=== PATIENT | male | born 1940 | race Caucasian/White ===

== ENCOUNTER 2017-01-13 17:10 | Emergency (ER) | payer OTHER ==
[2017-01-13 17:16] VITALS: BP 133/69; BMI 27.3
--- NOTE | 2017-01-13 18:16 | DR.GENAD ---
HPI - PCP Primary Care Physician: STERLING - Complaint/Symptoms Chief Complaint:: RIGHT LEG WEAKNESS AND PAIN THAT BEGAN ONE DAY THIS WEEK, UNSURE OF EXACT DAY. FRIEND THAT BROUGHT PT. TO THE ER SAYS PT. HAS HAD SLURRED SPEECH. - Source History Provided: Patient - Mode of Arrival Mode of Arrival: Wheelchair - Timing Onset of Chief Complaint: 01/09/17 PMH - PMH Past Medical History: Yes Past Medical History: Anxiety, Arthritis, Coronary Artery Disease, Depression, Diabetes, Dialysis, Dyslipidemia, GERD, Hypertension, Renal Disease Past Surgical History: Yes Surgical History: Angioplasty/Stents, Cholecystectomy, Ortho Surgery, Spleenectomy, Other - Family History History of Family Medical Conditions: Yes Family Medical History: Diabetes Mellitus - Social History Does patient currently use any type of tobacco product: No Have you used tobacco products in the last 12 months: No Type of Tobacco Use: None Does any household member use tobacco: No Alcohol Use: None Do you use any recreational Drugs:: No Lives With: Sitter Lives Where: Home - infectious screening In the last 2 months have you had wt loss of >10#?: NO Have you had fever, night sweats or hemotysis?: No Have you traveled outside the country in the last 6 months?: No Isolation: Standard PE - Vital Signs Vitals: Temperature 98.1 F Pulse Rate 106 Respiratory Rate 18 Blood Pressure [Right Arm] 174/74 Blood Pressure [Left Arm] 130/65 Blood Pressure 133/69 O2 Sat by Pulse Oximetry 96 ROR - XRAY XRAY Interpreted by: Radiologist (Right Femur: No acute cortical disruption or dislocation can be identified. The femoral head and neck are unremarkable in their appearance. No significant soft tissue swelling or injury can be seen. There is a metallic prosthesis in the right knee which appears in good position. The bones are osteopenic. The joint spaces are intact. Impression. Status post total right knee replacement and fiffuse osteopenia with no acute bony abnormality seen.) - Diagnosis Discharge Problem: Osteopenia determined by x-ray - Discharge Plan Condition: Stable - Follow ups/Referrals Follow ups/Referrals: Kelvin Singh [Primary Care Provider] - 3 days - Instructions
--- NOTE | 2017-01-13 19:11 | RAD ---
HISTORY: Pain Study: Right femur series Comparison: None Findings: No acute cortical disruption or dislocation can be identified. The femoral head and neck are unrema rkable in their appearance. No significant soft tissue swelling or injury can be seen. There is a m etallic prosthesis in the right knee which appears in good position. The bones are osteopenic. The j oint spaces are intact. IMPRESSION: Status post total right knee replacement and diffuse osteopenia with no acute bony abnormality seen. Reported By:
== END 2017-01-13 19:55 | disposition home or self-care (01) ==
LOC: ER 17:10
DX: M89.9 Disorder of bone, unspecified (principal)
CPT/HCPCS: 73552; 99282

== ENCOUNTER → 2017-01-20 | Outpatient (CLI) | payer OTHER ==
[2017-01-13 17:16] VITALS: BP 133/69
--- NOTE | 2017-01-20 14:00 | CT ---
HISTORY: TIA Study: CT head without contrast Comparison: June 29, 2016 Technique: Axial non contrast images with coronal and sagittal reformats. Dose reduction procedures were use with MA/kv adjusted for body size. Findings: The ventricles, cortical sulci, and other CSF spaces are enlarged consistent with generalized atroph y. There is decreased attenuation in the periventricular white matter suggestive of small vessel vas cular disease. There is a focus of decreased attenuation in the right thalamus which is new when com pared with the prior examination however it does have the appearance of a remote infarct. There is a n old lacunar infarct in the right caudate head. There is an old lacunar infarct in the left cerebel lar hemisphere. There is no evidence for hemorrhage, mass lesion, or extra-axial fluid collection. T hose sinuses visualized were clear. IMPRESSION: No definite acute intracranial abnormality. Atrophy Small-vessel disease Multiple old lacunar infarcts as described Reported By:
--- NOTE | 2017-01-20 15:10 | VAS ---
HISTORY: TIA. Study: Carotid ultrasound. Comparison: None available. Technique: Multiple shaw scale and color flow Doppler images of the right and left carotid arterial system were obtained. The vertebral arterial system was evaluated as well. Findings: Normal color flow Doppler is seen throughout the right and left carotid arterial system. No signifi cant plaque burden. No hemodynamically significant stenosis is seen based on velocity criteria. The right and left vertebral arteries demonstrate antegrade flow. IMPRESSION: 1. No hemodynamically significant stenosis. Reported By:
== END ==
LOC: RAD 13:23
PROVIDERS: ATTEND Internal Medicine Nephrology
DX: G45.8 Other transient cerebral ischemic attacks and related syndromes (principal)
CPT/HCPCS: 70450; 93880

== ENCOUNTER 2017-07-11 08:27 | Emergency (ER) | payer OTHER ==
[2017-07-11 08:44] VITALS: BMI 33.2
[2017-07-11] MEDS ORDERED: NITROSTAT SL PRN (08:45)
[2017-07-11] MEDS ORDERED: NITROSTAT SL ONE (08:49)
--- NOTE | 2017-07-11 08:52 | DR.CP ---
HPI - Time Seen Time seen: 08:40 - PCP Primary Care Physician: dilcia - Complaint Chief Complaint Doctor Comments: Patient states that he has had chest pain for three days recently, started on last week while in [place]. He states that the pain is 7/10 earlier today relieved with nitroglycerin. Denies radiation or diarphoresis. He states that he has had numerous stents, last on several years ago and is scheduled to have stents in [place] by Dr Willard in two days 07/13/17. Patient has had renal disease for ten years and goes to dialysis . Chief Complaint:: patient stated he has been having chest pain for about a week. is scheduled for a heart cath in 2 days in [facility] with dr mansfield. - Source History Provided: Patient - Mode of Arrival Mode of Arrival: Ambulatory - Timing Onset of Chief Complaint: 07/04/17 PMH - PMH Past Medical History: Yes Past Medical History: Anxiety, Arthritis, Coronary Artery Disease, Depression, Diabetes, Dialysis, Dyslipidemia, GERD, Hypertension, Renal Disease Past Surgical History: Yes Surgical History: Angioplasty/Stents, Cholecystectomy, Ortho Surgery, Spleenectomy, Other - Family History History of Family Medical Conditions: Yes Family Medical History: Diabetes Mellitus - Social History Does patient currently use any type of tobacco product: No Have you used tobacco products in the last 12 months: No Type of Tobacco Use: None Does any household member use tobacco: No Alcohol Use: None Do you use any recreational Drugs:: No Lives With: Family Lives Where: Home - infectious screening In the last 2 months have you had wt loss of >10#?: NO Have you had fever, night sweats or hemotysis?: No Have you traveled outside the country in the last 6 months?: No Isolation: Standard ROS - Review of Systems Eyes: No Symptoms Reported ENTM: No Symptoms Reported Respiratoy: No Symptoms Reported Cardiovascular: See HPI, Chest Pain Gastrointestinal/Abdominal: No Symptoms Reported Genitourinary: No Symptoms Reported Neurological: No Symptoms Reported Musculoskeletal: No Symptoms Reported Integumentary: No Symptoms Reported Hematologic/Lymphatic: No Symptoms Reported Endocrine: No Symptoms Reported Psychiatric: No Symptoms Reported All Other Systems: Reviewed and Negative PE - Vitals Vitals: Temperature 98.7 F Pulse Rate [Right Brachial] 79 Pulse Rate 76 Respiratory Rate 16 Blood Pressure [Right Arm] 122/61 Blood Pressure [Left Arm] 130/65 Blood Pressure 165/72 O2 Sat by Pulse Oximetry 99 - General Limitations: No Limitations General Appearance: Alert, In No Apparent Distress - Head Head Exam: Normal Inspection, Atraumatic - Eyes Eye exam: Normal Appearance, PERRL, EOMI - ENT ENT Exam: Normal Exam, Normal Oropharynx - Chest Chest Inspection: Normal Inspection, Symmetric Chest Wall Rise - Respiratory Respiratory Exam: Normal Lung Sounds Bilat Respiratory Exam: Bilateral Clear to Auscultation - Cardiovascular Cardiovascular Exam: Regular Rate, Normal Rhythm, Normal Heart Sounds Pulse: Normal, Radial Edema: Normal - Abdominal Exam Abdominal Exam: Normal Inspection, Normal Bowel Sounds Abdominal Tenderness: negative: RUQ, RLQ, LUQ, LLQ, Epigastrium, Suprapubic, Diffuse, Mild, Moderate, Severe, Other - Extremities Extremities Exam: Normal Inspection, Full ROM - Back Back Exam: Normal Inspection - Neurologic Neurological Exam: Alert, Oriented X3, CN II-XII Intact - Psychiatric Psychiatric Exam: Normal Affect - Skin Skin Exam: Warm, Dry, Intact MDM - Additional Information Additional Information Obtained From: Old Records Course - Treatment Treatment: Discussed with patient results of cardiac work up, recommended 24 hour observation; patient declined, states that he has an appointment for dialysis in the AM. He declined observation - Reevaluation 1st: Improved - Education/Counseling Educated On: Treatment, Diagnosis, Needs for Follow Up ROR - Labs Reviewed Laboratory Results Reviewed?: Yes (potassium elevated) Result Diagrams: 07/11/17 08:50 07/11/17 08:50 Laboratory: WBC 9.3 X10^3/uL (3.6-10.0) 07/11/17 08:50 RBC 2.68 X10^6/uL (4.7-6.0) L 07/11/17 08:50 Hgb 9.5 g/dL (13.5-18.0) L 07/11/17 08:50 Hct 27.3 % (42.0-54.0) L 07/11/17 08:50 MCV 101.7 fL (80.0-100.0) H 07/11/17 08:50 MCH 35.6 pg (27.0-34.0) H 07/11/17 08:50 MCHC 35.0 g/dL (33.0-35.0) 07/11/17 08:50 RDW 13.6 % (11.6-16.5) 07/11/17 08:50 Plt Count 239 X10^3/uL (150.0-450.0) 07/11/17 08:50 MPV 8.3 fL (7.4-11.0) 07/11/17 08:50 Neut % 68.3 % (42.0-75.0) 07/11/17 08:50 Lymph % 17.7 % (21.0-51.0) L 07/11/17 08:50 [place] % 12.5 % (0.0-13.0) 07/11/17 08:50 Eos % 1.0 % (0.9-2.9) 07/11/17 08:50 Baso % 0.5 % (0.2-1.0) 07/11/17 08:50 Neut # 6.3 x10^3/uL (2.2-4.8) H 07/11/17 08:50 Lymph # 1.6 X10^3/uL (1.3-2.9) 07/11/17 08:50 [place] # 1.2 x10^3/uL (0.3-0.8) H 07/11/17 08:50 Eos # 0.1 x10^3/uL (0.0-0.2) 07/11/17 08:50 Baso # 0.0 X10^3/uL (0.0-0.1) 07/11/17 08:50 Absolute Nucleated RBC 0.0 /100WBC 07/11/17 08:50 INR Target Range - 07/11/17 08:50 INR 1.00 (0.8-1.3) 07/11/17 08:50 PTT 28.6 SECONDS (22.9-36.5) 07/11/17 08:50 PTT Comment - 07/11/17 08:50 Sodium 135 mmol/L (136-145) L 07/11/17 08:50 Corrected Sodium 136 mmol/L (136-145) 07/11/17 08:50 Potassium 5.2 mmol/L (3.5-5.1) H 07/11/17 08:50 Chloride 98 mmol/L (98-107) 07/11/17 08:50 Carbon Dioxide 27.6 mmol/L (21-32) 07/11/17 08:50 BUN 33 mg/dL (7-18) H 07/11/17 08:50 Creatinine 6.14 mg/dL (0.70-1.30) H 07/11/17 08:50 Est GFR (MDRD) Af Amer 11 (>60) L 07/11/17 08:50 Est GFR (MDRD) Non-Af 9 (>60) L 07/11/17 08:50 Glucose 134 mg/dL (65-99) H 07/11/17 08:50 Calcium 8.1 mg/dL (8.5-10.1) L 07/11/17 08:50 Corrected Calcium 8.7 mg/dL (8.5-10.1) 07/11/17 08:50 Magnesium 1.8 mg/dL (1.7-2.9) 07/11/17 08:50 Total Bilirubin 0.30 mg/dL (0.2-1.0) 07/11/17 08:50 AST 13 Units/L (15-37) L 07/11/17 08:50 ALT < 6 Units/L (12-78) L 07/11/17 08:50 Alkaline Phosphatase 54 Units/L (46-116) 07/11/17 08:50 Creatine Kinase 62 Units/L (39-308) 07/11/17 08:50 CK-MB (CK-2) < 1.0 ng/mL (0-4.0) 07/11/17 08:50 CK/CKMB % Calc 1.6 % (<4) 07/11/17 08:50 Troponin I < 0.02 ng/mL (0-1.5) 07/11/17 08:50 Total Protein 7.2 g/dL (6.4-8.2) 07/11/17 08:50 Albumin 3.2 g/dL (3.4-5.0) L 07/11/17 08:50 Globulin 4.0 g/dL (2.5-4.5) 07/11/17 08:50 Albumin/Globulin Ratio 0.8 Ratio (1.1-2.1) L 07/11/17 08:50 - XRAY XRAY Interpreted by: Radiologist (Chest: The lungs are clear with minimal scarring in the oleft lung base. Mild cardiomegaly is present. No acute bony abnormalities are identified. Impression: Mild cardiomegaly without evidence of failure. No radiographic evidence of acute cardiopulmonary disease or significant change is noted when compared to the prior examination of 06/29/16) - Diagnosis Discharge Problem: Chest pain Qualifiers: Chest pain type: unspecified Qualified Code(s): R07.9 - Chest pain, unspecified - Discharge Plan Condition: Stable - Follow ups/Referrals Follow ups/Referrals: Kelvin Singh [Primary Care Provider] - 3 days - Instructions
[2017-07-11 08:57] LABS: BASOPHILS % (AUTO) 0.5 % (0.2-1.0); EOSINOPHILS # (AUTO) 0.1 x10^3/uL (0.0-0.2); HEMATOCRIT 27.3 % (42.0-54.0); HEMOGLOBIN 9.5 g/dL (13.5-18.0); LYMPHOCYTES # (AUTO) 1.6 X10^3/uL (1.3-2.9); LYMPHOCYTES % (AUTO) 17.7 % (21.0-51.0); MEAN CORPUSCULAR HEMOGLOBIN 35.6 pg (27.0-34.0); MEAN CORPUSCULAR VOLUME 101.7 fL (80.0-100.0); MEAN PLATELET VOLUME 8.3 fL (7.4-11.0); MONOCYTES # (AUTO) 1.2 x10^3/uL (0.3-0.8); MONOCYTES % (AUTO) 12.5 % (0.0-13.0); NEUTROPHILS # (AUTO) 6.3 x10^3/uL (2.2-4.8); NEUTROPHILS % (AUTO) 68.3 % (42.0-75.0); PLATELET COUNT 239 X10^3/uL (150.0-450.0); RED BLOOD COUNT 2.68 X10^6/uL (4.7-6.0); RED CELL DISTRIBUTION WIDTH 13.6 % (11.6-16.5); WHITE BLOOD COUNT 9.3 X10^3/uL (3.6-10.0)
[2017-07-11 09:02] VITALS: BP 122/61
[2017-07-11 09:14] LABS: BLOOD UREA NITROGEN 33 mg/dL (7-18); CALCIUM 8.1 mg/dL (8.5-10.1); CARBON DIOXIDE 27.6 mmol/L (21-32); CHLORIDE 98 mmol/L (98-107); COR NA(FOR HYPERGLY) 136 mmol/L (136-145); CREATININE 6.14 mg/dL (0.70-1.30); SODIUM 135 mmol/L (136-145); TROPONIN I < 0.02 ng/mL (0-1.5); eGFR BLACK RACES 11 (>60); eGFR NON BLACK RACES 9 (>60)
[2017-07-11 09:18] LABS: ALBUMIN 3.2 g/dL (3.4-5.0); ALKALINE PHOSPHATASE 54 Units/L (46-116); ASPARTATE AMINO TRANSFERASE 13 Units/L (15-37); CKMB % 1.6 % (<4); COR CA(FOR HYPOALB) 8.7 mg/dL (8.5-10.1); CREATINE KINASE 62 Units/L (39-308); CREATINE KINASE MB < 1.0 ng/mL (0-4.0); MAGNESIUM 1.8 mg/dL (1.7-2.9); TOTAL PROTEIN 7.2 g/dL (6.4-8.2)
--- NOTE | 2017-07-11 09:25 | RAD ---
HISTORY: Chest pain. History of renal cell carcinoma and bladder cancer. Study: AP portable chest Comparison: 06/29/2016 Findings: The lungs are clear with minimal scarring in the left lung base. Mild cardiomegaly is present. No a cute bony abnormalities are identified. Surgical clips are present in the left axilla. IMPRESSION: 1. Mild cardiomegaly without evidence of failure. 2. No radiographic evidence of acute cardiopulmonary disease or significant change is noted when com pared to the prior examination. Reported By:
[2017-07-11] MEDS ORDERED: PROVENTIL NEB TX 0.083% 2.5MG/ 3ML NEB SCH (09:45)
[2017-07-11] MEDS ORDERED: PROVENTIL NEB TX 0.083% 2.5MG/ 3ML ONE (09:50)
[2017-07-11 09:55] LABS: ALANINE AMINOTRANSFERASE < 6 Units/L (12-78)
== END 2017-07-11 10:56 | disposition home or self-care (01) ==
LOC: ER 08:35
DX: R07.89 Other chest pain (principal); I51.7 Cardiomegaly
CPT/HCPCS: 36415; 71010; 80053; 82550; 82553; 83735; 84484; 85025; 85610; 85730; 94640; 96365; 99283; 99285; A4222; J7613

== ENCOUNTER 2017-08-09 00:34 | Emergency (ER) | payer OTHER ==
[2017-08-09 00:46] VITALS: BP 174/86; BMI 27.3
[2017-08-09 01:22] LABS: BASOPHILS # (AUTO) 0.1 X10^3/uL (0.0-0.1); EOSINOPHILS # (AUTO) 0.1 x10^3/uL (0.0-0.2); EOSINOPHILS % (AUTO) 1.3 % (0.9-2.9); HEMOGLOBIN 10.5 g/dL (13.5-18.0); LYMPHOCYTES # (AUTO) 1.1 X10^3/uL (1.3-2.9); LYMPHOCYTES % (AUTO) 15.3 % (21.0-51.0); MEAN CORPUSCULAR HEMOGLOBIN 35.1 pg (27.0-34.0); MEAN CORPUSCULAR VOLUME 103.1 fL (80.0-100.0); MEAN PLATELET VOLUME 8.2 fL (7.4-11.0); MONOCYTES # (AUTO) 1.1 x10^3/uL (0.3-0.8); MONOCYTES % (AUTO) 14.9 % (0.0-13.0); NEUTROPHILS # (AUTO) 4.9 x10^3/uL (2.2-4.8); NEUTROPHILS % (AUTO) 67.5 % (42.0-75.0); PLATELET COUNT 205 X10^3/uL (150.0-450.0); RED CELL DISTRIBUTION WIDTH 15.6 % (11.6-16.5); WHITE BLOOD COUNT 7.3 X10^3/uL (3.6-10.0)
--- NOTE | 2017-08-09 01:23 | DR.GENAD ---
HPI - PCP Primary Care Physician: dilcia - Complaint/Symptoms Chief Complaint Doctors Comments: Patient was seen in [place] today secondary to hallucination; had a brain CT and read as normal. Relative is hear tondavid to see if patient can be admitted because there is no sitter to be with him until after 1100 AM. He will have a sitter at 1300. Family member has an appointment in the AM 0900 and therefore patient will be left alone. Patient is alert in no acute distress. Chief Complaint:: family stated he has been seeing things, and he has no sitter for tonight. was seen in [facility] today for the same issue. was told to see their neurologist. - Source History Provided: Patient - Mode of Arrival Mode of Arrival: Wheelchair - Timing Onset of Chief Complaint: 07/11/17 PMH - PMH Past Medical History: Yes Past Medical History: Anxiety, Arthritis, Coronary Artery Disease, Depression, Diabetes, Dialysis, Dyslipidemia, GERD, Hypertension, Renal Disease Past Surgical History: Yes Surgical History: Angioplasty/Stents, Cholecystectomy, Ortho Surgery, Spleenectomy, Other - Family History History of Family Medical Conditions: No Family Medical History: Diabetes Mellitus - Social History Does patient currently use any type of tobacco product: No Have you used tobacco products in the last 12 months: No Type of Tobacco Use: None Does any household member use tobacco: No Alcohol Use: None Do you use any recreational Drugs:: No Lives With: Sitter Lives Where: Home - infectious screening In the last 2 months have you had wt loss of >10#?: NO Have you had fever, night sweats or hemotysis?: No Have you traveled outside the country in the last 6 months?: No Isolation: Standard ROS - Review of Systems Eyes: No Symptoms Reported ENTM: No Symptoms Reported Respiratoy: No Symptoms Reported Cardiovascular: No Symptoms Reported Gastrointestinal/Abdominal: No Symptoms Reported Genitourinary: No Symptoms Reported Neurological: No Symptoms Reported Musculoskeletal: No Symptoms Reported Integumentary: No Symptoms Reported Hematologic/Lymphatic: No Symptoms Reported Endocrine: No Symptoms Reported Psychiatric: No Symptoms Reported All Other Systems: Reviewed and Negative PE - Vital Signs Vitals: Temperature 98.9 F Pulse Rate 91 Respiratory Rate 16 Blood Pressure [Right Arm] 122/61 Blood Pressure [Left Arm] 130/65 Blood Pressure 174/86 O2 Sat by Pulse Oximetry 97 - General General Appearance: Alert, In No Apparent Distress - Head Head Exam: Normal Inspection, Atraumatic - Eyes Eye exam: Normal Appearance, PERRL, EOMI - ENT ENT Exam: Normal Exam External Ear Exam: Normal External Inspection TM/Canal Exam: Bilateral Normal Nose Exam: Normal Nose Exam Mouth Exam: Normal Inspection Throat Exam: Normal Inspection - Neck Neck Exam: Normal Inspection - Chest Chest Inspection: Normal Inspection - Respiratory Respiratory Exam: Normal Lung Sounds Bilat Respiratory Exam: Bilateral Clear to Auscultation - Cardiovascular Cardiovascular Exam: Regular Rate, Normal Rhythm - Abdominal Exam Abdominal Exam: Normal Inspection, Normal Bowel Sounds Abdominal Tenderness: Other (urostomy bag right side.) - Extremities Extremities Exam: Normal Inspection, Full ROM - Back Back Exam: Normal Inspection, Full ROM - Neurologic Neurological Exam: Alert, Oriented X3, CN II-XII Intact - Psychiatric Psychiatric Exam: Normal Affect - Skin Skin Exam: Warm, Dry, Intact Course - Treatment Treatment: Albutrol nebulization - Reevaluation 1st: Improved ROR - Labs Reviewed Laboratory Results Reviewed?: Yes (potassium elevated slightly) Result Diagrams: 08/09/17 01:15 08/09/17 01:15 Laboratory: WBC 7.3 X10^3/uL (3.6-10.0) 08/09/17 01:15 RBC 3.00 X10^6/uL (4.7-6.0) L 08/09/17 01:15 Hgb 10.5 g/dL (13.5-18.0) L 08/09/17 01:15 Hct 31.0 % (42.0-54.0) L 08/09/17 01:15 MCV 103.1 fL (80.0-100.0) H 08/09/17 01:15 MCH 35.1 pg (27.0-34.0) H 08/09/17 01:15 MCHC 34.0 g/dL (33.0-35.0) 08/09/17 01:15 RDW 15.6 % (11.6-16.5) 08/09/17 01:15 Plt Count 205 X10^3/uL (150.0-450.0) 08/09/17 01:15 MPV 8.2 fL (7.4-11.0) 08/09/17 01:15 Neut % 67.5 % (42.0-75.0) 08/09/17 01:15 Lymph % 15.3 % (21.0-51.0) L 08/09/17 01:15 Floyd % 14.9 % (0.0-13.0) H 08/09/17 01:15 Eos % 1.3 % (0.9-2.9) 08/09/17 01:15 Baso % 1.0 % (0.2-1.0) 08/09/17 01:15 Neut # 4.9 x10^3/uL (2.2-4.8) H 08/09/17 01:15 Lymph # 1.1 X10^3/uL (1.3-2.9) L 08/09/17 01:15 Floyd # 1.1 x10^3/uL (0.3-0.8) H 08/09/17 01:15 Eos # 0.1 x10^3/uL (0.0-0.2) 08/09/17 01:15 Baso # 0.1 X10^3/uL (0.0-0.1) 08/09/17 01:15 Absolute Nucleated RBC 0.1 /100WBC 08/09/17 01:15 Sodium 137 mmol/L (136-145) 08/09/17 01:15 Corrected Sodium 138 mmol/L (136-145) 08/09/17 01:15 Potassium 5.4 mmol/L (3.5-5.1) H 08/09/17 01:15 Chloride 101 mmol/L (98-107) 08/09/17 01:15 Carbon Dioxide 26.1 mmol/L (21-32) 08/09/17 01:15 BUN 42 mg/dL (7-18) H 08/09/17 01:15 Creatinine 7.70 mg/dL (0.70-1.30) H 08/09/17 01:15 Est GFR (MDRD) Af Amer 9 (>60) L 08/09/17 01:15 Est GFR (MDRD) Non-Af 7 (>60) L 08/09/17 01:15 Glucose 127 mg/dL (65-99) H 08/09/17 01:15 Calcium 8.7 mg/dL (8.5-10.1) 08/09/17 01:15 Corrected Calcium TNP 08/09/17 01:15 Total Bilirubin 0.40 mg/dL (0.2-1.0) 08/09/17 01:15 AST 11 Units/L (15-37) L 08/09/17 01:15 ALT 16 Units/L (12-78) 08/09/17 01:15 Alkaline Phosphatase 63 Units/L (46-116) 08/09/17 01:15 C-Reactive Protein 3.00 mg/L (0-3.0) 08/09/17 01:15 Total Protein 7.2 g/dL (6.4-8.2) 08/09/17 01:15 Albumin 3.4 g/dL (3.4-5.0) 08/09/17 01:15 Globulin 3.8 g/dL (2.5-4.5) 08/09/17 01:15 Albumin/Globulin Ratio 0.9 Ratio (1.1-2.1) L 08/09/17 01:15 - Diagnosis Discharge Problem: Dialysis patient, Hyperkalemia - Discharge Plan Condition: Stable - Follow ups/Referrals Follow ups/Referrals: Kelvin Singh [Primary Care Provider] - 3 days - Instructions
[2017-08-09 01:33] LABS: ALANINE AMINOTRANSFERASE 16 Units/L (12-78); ALBUMIN 3.4 g/dL (3.4-5.0); ALKALINE PHOSPHATASE 63 Units/L (46-116); ASPARTATE AMINO TRANSFERASE 11 Units/L (15-37); BLOOD UREA NITROGEN 42 mg/dL (7-18); CALCIUM 8.7 mg/dL (8.5-10.1); CARBON DIOXIDE 26.1 mmol/L (21-32); CHLORIDE 101 mmol/L (98-107); COR NA(FOR HYPERGLY) 138 mmol/L (136-145); SODIUM 137 mmol/L (136-145); TOTAL PROTEIN 7.2 g/dL (6.4-8.2); eGFR BLACK RACES 9 (>60); eGFR NON BLACK RACES 7 (>60)
--- NOTE | 2017-08-09 01:39 | RAD ---
Chest, AP portable Indication: Shortness of breath Comparison: 08/08/2017 Findings: Borderline cardiac silhouette enlargement is unchanged. The lungs are grossly clear without overt edema, dense infiltrates, or significant pleural effusion. Impression: No acute chest process or significant change. Reported By:
[2017-08-09] MEDS ORDERED: ACCUNEB 1.25 MG NEBULE NEB SCH (01:45)
[2017-08-09] MEDS ORDERED: PROVENTIL NEB TX 0.083% 2.5MG/ 3ML ONE (01:47)
[2017-08-09] MEDS ORDERED: PROVENTIL NEB TX 0.083% 2.5MG/ 3ML NEB ONE (01:51)
[2017-08-09 01:58] LABS: BILIRUBIN,URINE NEGATIVE (NEGATIVE); BLOOD/HEMOGLOBIN,URINE 5+ (NEGATIVE); GLUCOSE, URINE NEGATIVE (NEGATIVE); KETONES,URINE NEGATIVE (NEGATIVE); LEUKOCYTE ESTERASE ,URINE NEGATIVE (NEGATIVE); NITRITES,URINE NEGATIVE (NEGATIVE); PROTEIN,URINE 2+ (NEGATIVE); UROBILINOGEN,URINE NORMAL (NORMAL)
[2017-08-09 02:06] LABS: APPEARANCE,URINE CLOUDY (CLEAR); BACTERIA,URINE NEGATIVE /HPF (NEGATIVE); COLOR,URINE PINK (YELLOW); RBC,URINE 80-100 /HPF (NEGATIVE); SQUAMOUS EPITHELIAL CELL,UR RARE /HPF (NEGATIVE)
== END 2017-08-09 02:20 | disposition home or self-care (01) ==
LOC: ER 00:34
DX: E87.5 Hyperkalemia (principal); Z99.2 Dependence on renal dialysis
CPT/HCPCS: 36415; 71045; 80053; 81001; 85025; 86140; 94640; 99282; 99283; J7613

== ENCOUNTER 2017-12-08 15:31 | Emergency (ER) | payer OTHER ==
[2017-12-08 15:50] VITALS: BP 188/88
[2017-12-08 15:51] VITALS: BMI 27.3
--- NOTE | 2017-12-08 16:13 | DR.GENAD ---
HPI - PCP Primary Care Physician: - HPI Comment HPI Comment: HOLDING PRESURE DID NOT STOP BLEEDING. DENIES WEAKNESS OR DIZZINES. - Complaint/Symptoms Chief Complaint Doctors Comments: BLEEDING LT AV SHUNT AT END OF DIALYSIS. Chief Complaint:: pt c/o bleeding from dialysis shunt. pt state he has been holding pressure to site for 1 hour and a half. - Nurses notes reviewed Nurses Notes Review: Yes - Source History Provided: Patient - Mode of Arrival Mode of Arrival: EMS - Timing Onset of Chief Complaint: 12/08/17 Came on: Suddenly - Duration Duration: Constant Duration: Hours - Severity Severity: Moderate PMH - PMH Past Medical History: Yes Past Medical History: Anxiety, Arthritis, Coronary Artery Disease, Depression, Diabetes, Dialysis, Dyslipidemia, GERD, Hypertension, Renal Disease Past Surgical History: Yes Surgical History: Angioplasty/Stents, Cholecystectomy, Ortho Surgery, Spleenectomy, Other - Family History History of Family Medical Conditions: Yes Family Medical History: Diabetes Mellitus - Social History Does any household member use tobacco: No Alcohol Use: None Do you use any recreational Drugs:: No Lives With: Alone Lives Where: Home - infectious screening In the last 2 months have you had wt loss of >10#?: NO Have you had fever, night sweats or hemotysis?: No Have you traveled outside the country in the last 6 months?: No Isolation: Standard ROS - Review of Systems Constitutional: No Symptoms Reported Eyes: No Symptoms Reported ENTM: No Symptoms Reported Respiratoy: No Symptoms Reported Cardiovascular: No Symptoms Reported Gastrointestinal/Abdominal: No Symptoms Reported Genitourinary: No Symptoms Reported Neurological: No Symptoms Reported Musculoskeletal: No Symptoms Reported Integumentary: Other (PERSISTENT BLEEDING FROM LEFT AV SHUNT NOTED AT END OF DIALYSIS WHEN NEEDLE WAS REMOVES.) Hematologic/Lymphatic: Easy Bleeding, Easy Bruising Endocrine: No Symptoms Reported All Other Systems: Reviewed and Negative PE - Vital Signs Vitals: Temperature 98.2 F Pulse Rate 110 Respiratory Rate 18 Blood Pressure [Right Arm] 122/61 Blood Pressure [Left Arm] 130/65 Blood Pressure 188/88 O2 Sat by Pulse Oximetry 96 - General Limitations: No Limitations General Appearance: Alert - Head Head Exam: Normal Inspection - Eyes Eye exam: Normal Appearance - ENT ENT Exam: Normal External Ear Exam - Neck Neck Exam: Trachea Midline - Chest Chest Inspection: Symmetric Chest Wall Rise - Respiratory Respiratory Exam: Normal Lung Sounds Bilat Respiratory Exam: Bilateral Rhonchi, Lower Rhonchi - Cardiovascular Cardiovascular Exam: Regular Rate, Normal Rhythm, Normal Heart Sounds - Abdominal Exam Abdominal Exam: Normal Bowel Sounds, Soft. negative: Tenderness - Extremities Extremities Exam: Normal Inspection - Back Back Exam: Normal Inspection - Neurologic Neurological Exam: Alert, Oriented X3 - Skin Skin Exam: Other (BLEEDING FROM LEFT AV SHUNT.) MDM - Differential Diagnosis Differential Diagnosis: HEMORRHAGE FROM LEFT AV SHUNT. Course - Treatment Treatment: SEE ORDERS. BLEEDING CONTRON BY APPLY SUTURE DONE DY SURGEON IN ED. SEE HIS NOTE. - Consultation Consultation Comments: DR. PAREDES, SURGEON CONSULTED. HE IS IN ED APPLYING SUTURE TO BLEEDINNG SITE. [place] SUTURE 4-0 WAS USE. - Education/Counseling Education/Counseling: Patient, Education Educated On: Diagnosis, Needs for Follow Up - Diagnosis Discharge Problem: Bleeding from dialysis shunt - Discharge Plan Disposition: 01 HOME, SELF-CARE Condition: Stable - Follow ups/Referrals Follow ups/Referrals: CAROLE WARREN [Primary Care Provider] - 3 days - Instructions Instructions: Dialysis Vascular Access Malfunction Additional Instructions: RETURN TO ED IF WORSE.
== END 2017-12-08 16:34 | disposition home or self-care (01) ==
LOC: ER 15:37
PROC: 0XQ9XZZ Repair Left Upper Arm, External Approach (ICD-10-PCS; principal; 2017-12-08)
DX: T82.838A Hemorrhage due to vascular prosthetic devices, implants and grafts, initial encounter (principal)
CPT/HCPCS: 12001; 99282